=== PATIENT | male | born 1935 | race Caucasian/White ===

== ENCOUNTER → 2020-12-28 | Outpatient (CLI) | payer MEDICARE ==
--- NOTE | 2020-12-29 10:08 | RESP ---
DATE OF SERVICE: 12/28/2020 PULMONARY FUNCTION TESTS Referred by Dr. Soto. The patient's FEV1 was 1.65, which is 61% predicted. FVC 3.16, which is 89% predicted. The FEV1/FVC ratio was reduced. There was 6% improvement in FVC and 11% improvement in FEV1 postbronchodilator. Total lung capacity was 194% predicted, residual volume 321% predicted. Diffusion capacity 55% predicted. IMPRESSION: 1. Moderate obstructive airway disease. 2. No response to bronchodilators. 3. Lung volumes consistent with air trapping and hyperinflation. 4. Moderately reduced diffusion capacity. RUDI/MANDO DR: [place] TID: [id number] CC: Bernie Soto MD
== END ==
LOC: PF 08:24
PROVIDERS: ATTEND Student in an Organized Health Care Education/Training Program
DX: J44.9 Chronic obstructive pulmonary disease, unspecified (principal); J98.11 Atelectasis
CPT/HCPCS: 94060; 94640; 94726; 94729; 94664